=== PATIENT | female | born 1970 | race Caucasian/White ===

== ENCOUNTER 2021-02-14 09:00 | Outpatient (RCR) | payer BC, SELFPAY ==
[2021-02-07 08:57] VITALS: BP 152/78; PULSE 76; RESP 16; TEMP 36.6
[2021-02-07 11:36] LABS: Absolute Lymphocyte Count 2.87 X10^3/uL (0.83-4.51); Absolute Neutrophil Count 6.1 X10^3/uL (2.0-7.7); Basophil# 0.07 X10^3/uL; Basophil% 0.7 % (0-1); Hematocrit 41.9 % (37-47); Hemoglobin 13.3 g/dL (12.0-15.0); Lymphocyte # 2.87 X10^3/ul (0.83-4.51); Lymphocyte % 28.8 % (19-41); Mean Corp Hgb Conc 31.7 g/dL (32-36); Mean Corpuscular Hgb 28.4 pg (27.0-32.0); Mean Corpuscular Volume 89.3 fL (81-99); Mean Platelet Vol. 10.1 fl (6.2-12.0); Monocyte# 0.63 X10^3/uL; Monocyte% 6.3 % (0-10); NRBC Flagged by Analyzer 0 % (0-5); Neutrophil # 6.06 X10^3/uL (2.7-7.7); Neutrophil % 60.8 % (47-70); Platelet Count 377 K/mm3 (150-450); RBC Distribution Width CV 14.2 % (11.6-14.6); RBC Distribution Width SD 46.2 fl (35.1-43.9); Red Blood Count 4.69 M/mm3 (4.2-5.4)
[2021-02-07 11:37] LABS: Erythrocyte Sedimentation Rate 13 mm/hr (0-30)
[2021-02-07 12:04] LABS: Hemoglobin A1c 8.3 % (3.8-5.6)
[2021-02-07 12:08] LABS: ALB/GLOB Ratio 0.9 RATIO (0.9-2.4); AST(SGOT) 27 U/L (15-37); Alanine Aminotransfer ALT/SGPT 44 U/L (13-56); Albumin, Serum 3.5 g/dL (3.2-5.0); Alkaline Phosphatase 105 U/L (45-117); Anion Gap 7 (5-15); BUN 15 mg/dL (7-18); CRP 4.85 mg/L (0.0-3.0); Calcium,Total 8.9 mg/dL (8.5-10.1); Chloride 103 mmol/L (98-107); Creatinine, Serum 0.84 mg/dL (0.55-1.02); EST Glomerular Filtration Rate 77 mL/min (>60); Est Glom Filt Rate - Afr Amer 93 mL/min (>60); Globulin 4.1 g/dL (2.2-4.2); Glucose 167 mg/dL (74-106); Potassium 4.2 mmol/L (3.5-5.1); Prealbumin 23.7 mg/dL (20.0-40.0); Protein, Total 7.6 g/dL (6.4-8.2); Sodium Level 140 mmol/L (136-145)
--- NOTE | 2021-02-07 13:28 | PCM.WC.HP ---
History of Present Illness Date of Service: 02/07/21 Chief Complaint: Left foot injury 01/09/2021 History of Wound: The patient is a pleasant 50-year-old female who presents to the wound healing center today (02/07/2021) for an initial evaluation of a left foot wound that resulted from an injury which occurred on 01/09/2021. She has a past medical history significant for type 2 diabetes mellitus, hypertension, and COPD. She is a non-smoker. The patient was initially evaluated at [facility], and subsequently with Dr. Roc Chambers (D.P.M.) at [facility]. No records are currently available. She reports that on 01/09/2021, she suffered an injury to her left dorsal foot when an object fell from a tractor. Initially her left foot became bruised and very swollen. She was evaluated in the emergency department at [facility] and an x-ray was negative for fracture (per patient report). She was started on an antibiotic at that time. She followed up with Dr. Roc Chambers at [facility] and another x-ray was subsequently performed, and she was given doxycycline. She reports she had developed blisters at the time of her podiatric evaluation, which were drained by Dr. Chambers. She has been using Neosporin and gauze dressings to her left foot wound. She was given a walking boot by Dr. Chambers, which she has been using on her left foot. She has not had any wound cultures. She was referred here by Dr. Chambers. Since the time of her injury, she has had numbness in her left fourth and fifth toes. She is unable to move these toes. She has pain along the lateral aspect of the wound. She denies fever, chills, nausea, vomiting, or diarrhea. The patient has not had increased redness, swelling, or purulent/malodorous drainage from affected area. [facility], LATER [facility] Medical History (Updated 02/07/21 @ 13:58 by Mabel Hewitt NP, SISAL OPERATOR-C) COPD (chronic obstructive pulmonary disease) Diabetic ulcer of left foot associated with diabetes mellitus due to underlying condition, with muscle involvement without evidence of necrosis Essential hypertension Type 2 diabetes mellitus Varicose veins of bilateral lower extremities with other complications ROS Constitutional Constitutional: Denies chills, fever(s) or night sweats Eyes Eyes: Denies change in vision or double vision ENT HEENT: Denies lip swelling or tongue swelling Cardiovascular Cardiovascular: Reports edema and numbness in extremities; Denies chest pain or palpitations Respiratory/Chest Respiratory/Chest: Reports cough; Denies shortness of breath at rest, shortness of breath with exertion or wheezing Gastrointestinal Gastrointestinal: Denies diarrhea, nausea or vomiting Genitourinary Genitourinary: Denies dysuria or hematuria Musculoskeletal Musculoskeletal: Reports extremity pain, numbness and tingling; Denies abnormal gait or muscle weakness Integumentary Integumentary: Reports pruritus, rash and wounds Neurologic Neurologic: Reports numbness, sensory deficit and other Details: Unable to move fourth and fifth toes of left foot Endocrine Endocrinology: Denies cold intolerance, heat intolerance, polydipsia or polyuria Hematologic/Lymphatic Hematologic/Lymphatic: Denies easy bleeding or easy bruising Vital Signs Vital Signs Vital Signs: 02/07/21 08:57 Temperature 97.9 F Temperature Source Oral Pulse Rate 76 Respiratory Rate 16 Blood Pressure 152/78 H Blood Pressure Mean 102 Blood Pressure Position Sitting Blood Pressure Location Right Arm Physical Exam Const alert, no apparent distress and healthy appearing General Appearance: cooperative, comfortable and well kempt HEENT Head and Scalp: normocephalic and atraumatic Eyes EOMs intact bilaterally Neck supple and no JVD Resp normal respiratory effort, normal air movement and no use of accessory muscles Auscultation: clear to auscultation bilaterally; Negative for crackles, rales, rhonchi or wheezes Cardio regular rate and regular rhythm GI normal to inspection, nondistended, normoactive bowel sounds Extremity normal capillary refill Extremity Narrative: Varicosities of bilateral lower extremities noted General Extremity: edema left lower extremity (Foot) moderate; Negative for clubbing or cyanosis Peripheral Pulses: Yes dorsalis pedis pulses present bilateral 2+ Left Lower Extremity: foot and digits Positive for ROM (When asked to wiggle toes, movement is only observed in the left first and second digits) and other (Decreased sensation to touch in left fourth and fifth toes) Skin General Skin Exam: ecchymosis and erythema Rashes: rashes noted Left dorsal foot Narrative: Well-defined, erythematous, raised, dermatitic rash of the left dorsal foot at the site of patient's previous dressings. The site is pruritic per patient. Wounds: wounds noted No malodorous Wound Narrative: Wound of left dorsal foot with tendon exposed. Wound is covered in large amounts of eschar, which makes visualization of wound bed and determining extent of wound difficult at this time. The wound extends to muscle/fascia. Probing to bone was not noted on exam, though this cannot be fully excluded based on the amount of eschar and devitalized tissue present in the wound bed. There is circumferential undermining of the wound. Moderate amount of sanguinous drainage noted. There is no purulent/malodorous drainage from the wound. There is mild periwound erythema. There is bruising of the left foot. The left foot is tender to palpation, primarily along the lateral aspect of the left foot. Neuro oriented x3 Psych mental status grossly normal, cooperative and affect normal Debridement Note Debridement Note Post-Debridement Measurements and Additional Note: Post-Debridement Measurements/Treatment - Nurse 1 - General Ulcer Assessment Start: 02/07/21 08:57 Freq: Status: Active Protocol: [email or web address] Activity Type Activity Date Activity User E-Sign Co-Sign Detail Recorded Client Recorded Date Recorded By Document 02/07/21 08:57 ML [id number] 02/07/21 09:12 ML 02/07/21 08:57 - Today's Visit Information Type of service Initial Visit Arrival Mode Ambulatory Transfer Assistance None Patient Identification Verified (Name & Yes ) Patient Requires Transmission-Based No Precautions Safety Precautions NA Vital Signs Temperature (97.8 F-99.1 F) 97.9 F Temperature Source Oral Pulse Rate (60-100) 76 Pulse Location Monitor Respiratory Rate (12-18) 16 Respiratory rate source Ausculation Blood Pressure (90/60-120/80) 152/78 H Blood Pressure Mean 102 Position Sitting Blood Pressure Location Right Arm History Since Last Visit- (Skip if this is Patient's initial visit) Have you changed medications since your No last visit? Any new allergies or adverse reactions No Had a fall/change in ADL's that may No increase risk of falls Signs or symptoms of abuse and/or No neglect since last visit Have you been in the hospital since your No last visit? Has dressing in place as prescribed No Has compression in place as prescribed N/A Has offloadiing in place as prescribed N/A Experienced any changes in pain level or No management Left Footwear Removable Cast Walker/Walking Boot Right Footwear Regular Shoe Pain Scale: 0-10 Numeric Is Patient Pain Free? Yes - Nurse 1 - General Ulcer Measurement Start: 02/07/21 08:57 Freq: Status: Active Protocol: Activity Type Activity Date Activity User E-Sign Co-Sign Detail Recorded Client Recorded Date Recorded By Document 02/07/21 08:57 ML [id number] 02/07/21 09:12 ML 02/07/21 08:57 Wound Center Nurse 1 #1 left foot -Current Size (cm) - Length 2.2 -Current Size (cm) - Width 2.5 -Current Size (cm) - Depth 0.1 -Total Square Cm 5.50 -Exudate Amt Small -Exudate Type Serosanguineous -Wound Margin Distinct, Outline Attached -Granulation Amt None Present (0 %) -Slough/Fibrin Yes -Necrosis Amt Medium (34-66%) -Necrotic Tissue Type Eschar -Texture (Oly-wound Skin Appearance) Assessed -Moisture (Oly-wound Skin Appearance) Assessed -Color (Oly-wound Skin Appearance) Assessed, Erythema -Temperature (Oly-wound Skin No Abnormality Appearance) (Pt Warm) -Tenderness on Palpation (Oly-wound Yes Skin Appearance) -Ulcer Cleansing Wound Cleanser -Foul Odor after Cleansing No -Anesthetic Used 4% Lidocaine Solution WC - Nurse 2 - General Ulcer CM Notes Start: 02/07/21 08:57 Freq: Status: Active Protocol: Activity Type Activity Date Activity User E-Sign Co-Sign Detail Recorded Client Recorded Date Recorded By Document 02/07/21 12:39 PL [id number] 02/07/21 12:41 PL 02/07/21 12:39 Wound Center Nurse 2 -Time 09:52 -Correct Patient Yes -Correct Side, Site, Position Yes -Correct Procedure Yes -Procedure Performed Yes -Type of Procedure Debridement -Clinical Debridement Subcutaneous -Tissue Removed Subcutaneous -Post Debridement (cm) - Length 3 -Post Debridement (cm) - Width 2.2 -Post Debridement (cm) - Depth 1.4 -Total Square (Post) (cm) 6.6 -Area of Debridement (cm) - Length 3 -Area of Debridement (cm) - Width 2.2 -Total Square (Area) (cm) 6.6 -Tunneling No -Undermining/Tunneling No -Circular Undermining No -Wound/Ulcer Outcome Not Healed -Ulcer Cleansing Rinsed/ Irrigated with Saline -Foul Odor after Cleansing No -Bioengineered Tissue No -Debridement - Subq, 1st 20sq cm Yes Pain Scale: 0-10 Numeric Is Patient Pain Free? Yes WC - Nurse 3 - General Ulcer D/C NN Start: 02/07/21 08:57 Freq: Status: Active Protocol: Activity Type Activity Date Activity User E-Sign Co-Sign Detail Recorded Client Recorded Date Recorded By Document 02/07/21 10:31 ML [id number] 02/07/21 10:32 ML 02/07/21 10:31 Wound Care Nurse 3 #1 left foot -Ulcer Cleansing Rinsed/ Irrigated with Saline -Foul Odor after Cleansing No -Primary Dressing Applied Nugauze, Iodoform -Other Dressing hydrogel -Primary Dressing Covered/Secured with Dry Gauze & Roll Gauze -Nugauze, Iodoform 07/29 1 Wound debrided: Left dorsal foot DFU Laterality: Left Wound Grade/Stage: Balbuena 3 Type of Debridement: Excisional debridement Anesthesia Used: 5% Lidocaine Gel and Cetacaine Depth: Down to and including healthy tissue, in the subcutaneous layer and to muscle Percentage of wound debrided: 100 Instrument Used: 5mm curette, #15 blade and Forceps Tissue Removed: Eschar, slough, devitalized tissue Severity: Necrosis of Muscle Amount of bleeding with debridement: Moderate Bleeding Controlled with: Pressure Patient tolerated procedure: Patient tolerated procedure well Lab / Micro Data Result Diagrams: 02/07/21 10:52 02/07/21 10:52 Labs: Laboratory Results - last 24 hr 02/07/21 10:52: Sodium 140, Potassium 4.2, Chloride 103, Carbon Dioxide 30.0, Anion Gap 7, BUN 15, Creatinine 0.84, Est GFR (MDRD) Af Amer 93, Est GFR (MDRD) Non-Af 77, BUN/Creatinine Ratio 18.0, Glucose 167 H, Calcium 8.9, Total Bilirubin 0.50, AST 27, ALT 44, Alkaline Phosphatase 105, C-React Prot Ext Range 4.85 H, Total Protein 7.6, Albumin 3.5, Globulin 4.1, Albumin/Globulin Ratio 0.9, Prealbumin 23.7 02/07/21 10:52: Hemoglobin A1c 8.3 H 02/07/21 10:52: WBC 10.0, RBC 4.69, Hgb 13.3, Hct 41.9, MCV 89.3, MCH 28.4, MCHC 31.7 L, RDW Std Deviation 46.2 H, RDW Coeff of Koffi 14.2, Plt Count 377, MPV 10.1, Immature Gran % (Auto) 0.400, Neut % (Auto) 60.8, Lymph % (Auto) 28.8, [place] % (Auto) 6.3, Eos % (Auto) 3.0, Baso % (Auto) 0.7, Absolute Neuts (auto) 6.1, Absolute Lymphs (auto) 2.87, Nucleated RBC % 0, ESR 13 Charges/Coding Visit Charges Office Visits / Consults: [id number] OV L4 New Procedures Integumentary [id number]: [id number] Tonja musc/fascia 20 sq cm/< Assessment/Plan Assessment/Plan (1) Diabetic ulcer of left foot associated with diabetes mellitus due to underlying condition, with muscle involvement without evidence of necrosis: CODE(S): E08.621 - Diabetes mellitus due to underlying condition with foot ulcer; L97.525 - Non-pressure chronic ulcer of other part of left foot with muscle involvement without evidence of necrosis (2) Type 2 diabetes mellitus: CODE(S): E11.9 - Type 2 diabetes mellitus without complications QUALIFIERS: Diabetes mellitus group home insulin use: without group home use Diabetes mellitus complication status: with skin complications Diabetes mellitus complication detail: with foot ulcer Qualified Code(s): E11.621 - Type 2 diabetes mellitus with foot ulcer; L97.509 - Non-pressure chronic ulcer of other part of unspecified foot with unspecified severity (3) Varicose veins of bilateral lower extremities with other complications: CODE(S): I83.893 - Varicose veins of bilateral lower extremities with other complications (4) Essential hypertension: CODE(S): I10 - Essential (primary) hypertension (5) COPD (chronic obstructive pulmonary disease): CODE(S): J44.9 - Chronic obstructive pulmonary disease, unspecified QUALIFIERS: COPD type: unspecified COPD Qualified Code(s): J44.9 - Chronic obstructive pulmonary disease, unspecified PLAN: Debridement performed today in clinic as annotated above. Gauze packing applied. At home wound-care instructions: Santyl ointment ordered. Perform Santyl dressing changes daily, and cover/pack with gauze. Change dressing once daily or more frequently as needed due to contamination. Wash wounds daily with antibacterial soap and water, rinse and dry thoroughly before each dressing change. Off-loading: The patient was instructed to avoid pressure and friction on the affected areas. Avoid prolonged standing and/or dangling of legs. When seated, feet should be elevated at chest level. Diet: Patient encouraged to increase protein intake while taking caution to avoid high carbohydrate and/or sugar intake. Labs/cultures/imaging: Cultures ordered and collected today. The patient was instructed to continue doxycycline. If antibiotic changes warranted, we will contact the patient with new orders. Routine baseline lab work ordered (CBCD, CMP, ESR, CRP, prealbumin, A1c). Venous and arterial studies ordered. MRI with and without contrast of left foot ordered to evaluate for the presence of osteomyelitis. Follow-up: Return to clinic in 1 week for re-evaluation. Return sooner or report to the emergency room should symptoms worsen, or new symptoms arise. Given the depth and undermining of the patient's wound, as well as involvement of tendon, the patient will be referred to podiatry. I called and spoke with Dr. Roc Chambers's clinical staff regarding the patient's wound condition and the need for surgical debridement. Dr. Roc Chambers will be leaving [facility] in February 2021. The patient will be referred to Dr. Aguilar for surgical podiatric consult.
[2021-02-14 09:04] VITALS: TEMP 35.7
--- NOTE | 2021-02-14 14:29 | PN.PCM_ITS ---
History of Present Illness Date of Service: 02/14/21 Chief Complaint: Left foot injury 01/09/2021 History of Wound: The patient is a pleasant 50-year-old female who presents to the wound healing center today (02/07/2021) for an initial evaluation of a left foot wound that resulted from an injury which occurred on 01/09/2021. She has a past medical history significant for type 2 diabetes mellitus, hypertension, and COPD. She is a non-smoker. The patient was initially evaluated at [facility], and subsequently with Dr. Roc Chambers (D.P.M.) at [facility]. No records are currently available. She reports that on 01/09/2021, she suffered a traumatic injury to her left dorsal foot when seated on the fender of the tractor and her foot was forcefully crushed by part of the tractor. Initially her left foot became bruised and very swollen. She was evaluated in the emergency department at [facility] and an x-ray was negative for fracture or dislocation. She was started on an antibiotic at that time. She followed up with Dr. Roc Chambers at [facility] and another x-ray was subsequently performed, and she was given doxycycline. She reports she had developed blisters at the time of her podiatric evaluation, which were drained by Dr. Chambers. She has been using Neosporin and gauze dressings to her left foot wound. She was given a walking boot by Dr. Chambers, which she has been using on her left foot. She has not had any wound cultures. She was referred here by Dr. Chambers. Since the time of her injury, she has had numbness in her left fourth and fifth toes. She is unable to move these toes. She has pain along the lateral aspect of the wound. She denies fever, chills, nausea, vomiting, or diarrhea. The patient has not had increased redness, swelling, or purulent/malodorous drainage from affected area. Progress of Wound: Patient has been compliant with the use of Santyl. Her wound has improved in size and appearance in the past week. She has regained feeling and movement in all the toes of her left foot. Her left foot swelling and pain have improved. The patient denies fever, chills, general malaise, or poor appetite. The patient has not had increased redness, swelling, or p urulent/malodorous drainage from affected area. Objective Data Objective Data Vital Signs: Vital Signs Temp Pulse Resp BP 96.2 F L 76 16 152/78 H 02/14/21 09:04 02/07/21 08:57 02/07/21 08:57 02/07/21 08:57 Lab / Micro Data Result Diagrams: 02/07/21 10:52 02/07/21 10:52 Micro: Microbiology 02/07/21 10:00 Wound Abcess - Left Foot Gram Stain - Final 02/07/21 10:00 Wound Abcess - Left Foot Wound Culture - Final No growth aerobically. 02/07/21 10:00 Wound Abcess - Left Foot Anaerobic Culture - Final No growth in 5 days. Charges/Coding Procedures Integumentary [id number]: [id number] Tonja musc/fascia 20 sq cm/< Physical Exam Const alert, no apparent distress and healthy appearing General Appearance: cooperative, comfortable and well kempt HEENT Head and Scalp: normocephalic and atraumatic Neck supple Resp normal respiratory effort Extremity normal capillary refill Extremity Narrative: Varicosities of bilateral lower extremities noted General Extremity: edema left lower extremity (Foot) mild; Negative for clubbing or cyanosis Peripheral Pulses: Yes dorsalis pedis pulses present left 2+ Left Lower Extremity: foot and digits Positive for ROM (Able to move all toes of left foot) and other (No decreased sensation to touch in toes of left foot) Skin Rashes: no rashes Wounds: wounds noted No malodorous Wound Narrative: Wound of left dorsal foot with questionable tendon exposed. Wound is covered in moderate to large amounts of eschar, which makes visualization of wound bed and determining extent of wound difficult at this time. The wound extends to muscle/fascia. Probing to bone was not noted on exam, though this cannot be fully excluded based on the amount of eschar and devitalized tissue present in the wound bed. Undermining of the wound and depth of wound have improved in the past week. Moderate amount of sanguinous drainage noted. There is no purulent/malodorous drainage from the wound. There is mild periwound erythema. The left foot is tender to palpation, primarily along the lateral aspect of the left foot. Neuro oriented x3 Psych mental status grossly normal, cooperative and affect normal Debridement Note Debridement Note Post-Debridement Measurements and Additional Note: Post-Debridement Measurements/Treatment - Nurse 1 - General Ulcer Assessment Start: 02/07/21 08:57 Freq: Status: Active Protocol: JOSSELYN Activity Type Activity Date Activity User E-Sign Co-Sign Detail Recorded Client Recorded Date Recorded By Document 02/07/21 08:57 ML [id number] 02/07/21 09:12 ML Document 02/14/21 09:04 GARRETT [id number] 02/14/21 09:10 GARRETT 02/07/21 02/14/21 08:57 09:04 WC - Today's Visit Information Type of service Initial Visit Follow-up Visit (Physician/SENIOR BENEFITS MANAGER ) Arrival Mode Ambulatory Ambulatory Transfer Assistance None Patient Identification Verified (Name & Yes Yes ) Patient Requires Transmission-Based No No Precautions Safety Precautions NA Finger Stick Blood Sugar(mg/dl) (if 148 indicated): Blood Sugar Stated by Patient Vital Signs Temperature (97.8 F-99.1 F) 97.9 F 96.2 F L Temperature Source Oral Temporal Pulse Rate (60-100) 76 Pulse Location Monitor Respiratory Rate (12-18) 16 Respiratory rate source Ausculation Blood Pressure (90/60-120/80) 152/78 H Blood Pressure Mean (mm Hg) 102 Position Sitting Blood Pressure Location Right Arm History Since Last Visit- (Skip if this is Patient's initial visit) Have you changed medications since your No No last visit? Any new allergies or adverse reactions No No Had a fall/change in ADL's that may No No increase risk of falls Signs or symptoms of abuse and/or No No neglect since last visit Have you been in the hospital since your No No last visit? Has dressing in place as prescribed No Yes Has compression in place as prescribed N/A Yes Has offloadiing in place as prescribed N/A Yes Experienced any changes in pain level or No No management Left Footwear Removable Cast Removable Cast Walker/Walking Walker/Walking Boot Boot Right Footwear Regular Shoe Regular Shoe Pain Scale: 0-10 Numeric Is Patient Pain Free? Yes Yes CHUCKIE - Nurse 1 - General Ulcer Measurement Start: 02/07/21 08:57 Freq: Status: Active Protocol: Activity Type Activity Date Activity User E-Sign Co-Sign Detail Recorded Client Recorded Date Recorded By Document 02/07/21 08:57 ML [id number] 02/07/21 09:12 ML Document 02/14/21 09:04 [id number] 02/14/21 09:10 02/07/21 02/14/21 08:57 09:04 Wound Center Nurse 1 #1 left foot -Combined with other wound No -Current Size (cm) - Length 2.2 2.3 -Current Size (cm) - Width 2.5 1.6 -Current Size (cm) - Depth 0.1 0.4 -Total Square Cm 5.50 3.68 -Photo Taken No -Epithelialization Small 1-33% -Tunneling No -Undermining/Tunneling No -Circular Undermining No -Exudate Amt Small Medium -Exudate Type Serosanguineous Serosanguineous -Wound Margin Distinct, Flat & Intact Outline Attached -Granulation Amt None Present (0 Small (1-33%) %) -Granulation Quality [place] -Slough/Fibrin Yes Yes -Necrosis Amt Medium (34-66%) Large (67-100%) -Necrotic Tissue Type Eschar Adherent Slough -Structure Exposed N/A -Texture (Oly-wound Skin Appearance) Assessed Assessed -Moisture (Oly-wound Skin Appearance) Assessed Assessed,Dry/ Scaly -Color (Oly-wound Skin Appearance) Assessed, Assessed Erythema -Temperature (Oly-wound Skin No Abnormality No Abnormality Appearance) (Pt Warm) (Pt Warm) -Tenderness on Palpation (Oly-wound Yes No Skin Appearance) -Ulcer Cleansing Wound Cleanser Rinsed/ Irrigated with Saline -Foul Odor after Cleansing No No -Anesthetic Used 4% Lidocaine 5% Lidocaine Solution Gel Lower Limb Edema Present Yes Left Calf (cm) 39.3 Left Ankle (cm) 21.3 WC - Nurse 2 - General Ulcer CM Notes Start: 02/07/21 08:57 Freq: Status: Active Protocol: Activity Type Activity Date Activity User E-Sign Co-Sign Detail Recorded Client Recorded Date Recorded By Document 02/07/21 12:39 PL [id number] 02/07/21 12:41 PL Document 02/14/21 13:30 PL [id number] 02/14/21 13:31 PL 02/07/21 02/14/21 12:39 13:30 Wound Center Nurse 2 #1 left foot -Time 09:52 09:57 -Correct Patient Yes Yes -Correct Side, Site, Position Yes Yes -Correct Procedure Yes Yes -Procedure Performed Yes Yes -Type of Procedure Debridement Debridement -Clinical Debridement Subcutaneous Subcutaneous -Tissue Removed Subcutaneous Subcutaneous -Post Debridement (cm) - Length 3 2.5 -Post Debridement (cm) - Width 2.2 2.0 -Post Debridement (cm) - Depth 1.4 0.8 -Total Square (Post) (cm) 6.6 5.00 -Area of Debridement (cm) - Length 3 2.5 -Area of Debridement (cm) - Width 2.2 2.0 -Total Square (Area) (cm) 6.6 5.00 -Tunneling No No -Undermining/Tunneling No Yes -Undermining/Tunneling Starts (O'clock 7 ) -Undermining/Tunneling Ends (O'clock) 11 -Maximum Distance (cm) 0.5 -Circular Undermining No No -Wound/Ulcer Outcome Not Healed Not Healed -Ulcer Cleansing Rinsed/ Rinsed/ Irrigated with Irrigated with Saline Saline -Foul Odor after Cleansing No No -Bioengineered Tissue No No -Bleeding Controlled with Pressure -Treatment Response Procedure Tolerated Well -Debridement - Subq, 1st 20sq cm Yes Yes Pain Scale: 0-10 Numeric Is Patient Pain Free? Yes Yes - Nurse 3 - General Ulcer D/C NN Start: 02/07/21 08:57 Freq: Status: Active Protocol: Activity Type Activity Date Activity User E-Sign Co-Sign Detail Recorded Client Recorded Date Recorded By Document 02/07/21 10:31 ML [id number] 02/07/21 10:32 Document 02/14/21 10:24 [id number] 02/14/21 10:25 02/07/21 02/14/21 10:31 10:24 Wound Care Nurse 3 #1 left foot -Ulcer Cleansing Rinsed/ Rinsed/ Irrigated with Irrigated with Saline Saline -Foul Odor after Cleansing No No -Primary Dressing Applied Nugauze, C Hydrogel ($) Iodoform -Other Dressing hydrogel -Primary Dressing Covered/Secured with Dry Gauze & Dry Gauze, Roll Gauze Secured with Tape -Nugauze, Iodoform 1/4 1 Left -Tubular Bandage Double Layer -Size of Tubigrip Used Size D -Size D ($) 2 Pain Scale: 0-10 Numeric Is Patient Pain Free? Yes WC - Visit Discharge Discharge Condition Stable Ambulatory Status Ambulatory Transportation Private Auto Medication Reconcilliation completed & Yes provided to patient/care provider Clinical Summary of Care Provided Yes Wound debrided: Left dorsal foot Laterality: Left Wound Grade/Stage: Balbuena 3 Type of Debridement: Excisional debridement Anesthesia Used: 5% Lidocaine Gel Depth: Down to and including healthy tissue, in the subcutaneous layer and to muscle Percentage of wound debrided: 100 Instrument Used: 7mm curette Tissue Removed: Slough and devitalized tissue Severity: Fat Layer Exposed Amount of bleeding with debridement: Moderate Bleeding Controlled with: Pressure Patient tolerated procedure: Patient tolerated procedure well Assessment/Plan Assessment/Plan (1) Diabetic ulcer of left foot associated with diabetes mellitus due to underlying condition, with muscle involvement without evidence of necrosis: CODE(S): E08.621 - Diabetes mellitus due to underlying condition with foot ulcer; L97.525 - Non-pressure chronic ulcer of other part of left foot with muscle involvement without evidence of necrosis (2) Crushing injury of left foot, sequela: CODE(S): S97.82XS - Crushing injury of left foot, sequela (3) Type 2 diabetes mellitus: CODE(S): E11.9 - Type 2 diabetes mellitus without complications QUALIFIERS: Diabetes mellitus senior care insulin use: without termite control servicer use Diabetes mellitus complication status: with skin complications Diabetes mellitus complication detail: with foot ulcer Qualified Code(s): E11.621 - Type 2 diabetes mellitus with foot ulcer; L97.509 - Non-pressure chronic ulcer of other part of unspecified foot with unspecified severity (4) Varicose veins of bilateral lower extremities with other complications: CODE(S): I83.893 - Varicose veins of bilateral lower extremities with othe r complications (5) Essential hypertension: CODE(S): I10 - Essential (primary) hypertension (6) COPD (chronic obstructive pulmonary disease): CODE(S): J44.9 - Chronic obstructive pulmonary disease, unspecified QUALIFIERS: COPD type: unspecified COPD Qualified Code(s): J44.9 - Chronic obstructive pulmonary disease, unspecified PLAN: Debridement performed today in clinic as annotated above. Aquacel Ag applied. At home wound-care instructions: Perform Santyl dressing changes daily, and cover/pack with gauze. Change dressing once daily or more frequently as needed due to contamination. Wash wounds daily with antibacterial soap and water, rinse and dry thoroughly before each dressing change. Compression: Double Tubigrip's applied to the left lower extremity. Wear these daily. Off-loading: The patient was instructed to avoid pressure and friction on the affected areas. Avoid prolonged standing and/or dangling of legs. When seated, feet should be elevated at chest level. Continue use of walking boot given by Ortho. Diet: Patient encouraged to increase protein intake while taking caution to avoid high carbohydrate and/or sugar intake. The patient is a non-smoker. Labs/cultures/imaging: Cultures were negative. The patient has completed a course of doxycycline. Routine baseline lab work reviewed (CBCD, CMP, ESR, CRP, prealbumin, A1c), significant for the following: CBCD: Unremarkable CMP: Glucose 167 (H) Hemoglobin A1c: 8.3% (H) CRP: 4.85 (H) ESR: Normal Prealbumin: Normal *The patient's PCP office was contacted with results of hemoglobin A1c. Patient has been encouraged to follow-up with PCP at earliest convenience to discuss further management of diabetes. The importance of optimizing glucose management was discussed with the patient. Venous and arterial studies ordered: The patient does not wish to pursue vascular studies at this time. This will be readdressed if we experience stalling of wound healing. MRI with and without contrast of left foot ordered to evaluate for the presence of osteomyelitis; this has been scheduled for next week. Follow-up: Patient will be referred to podiatry for consultation next week. Given patient's significant improvement in the past week, surgery may not be nec essary. If surgery is felt necessary by podiatry, that will be pursued. If unable to see podiatry within the next week, contact the wound healing center to be scheduled with a [facility] provider for reevaluation. Return sooner or report to the emergency room should symptoms worsen, or new symptoms arise. Note: Dapt speech recognition house cleaner supervisor software was used to create portions of this document. Sound-alike and misspelled words, as well as other house cleaner supervisor errors may be contained in the documentation.
== END 2021-02-22 23:59 ==
LOC: WC 09:00
PROVIDERS: PCP Internal Medicine; Referring Provider Nurse Practitioner Family; Visit Provider Nurse Practitioner Family
DX: E11.621 Type 2 diabetes mellitus with foot ulcer (principal); L97.525 Non-pressure chronic ulcer of other part of left foot with muscle involvement without evidence of necrosis; S97.82XA Crushing injury of left foot, initial encounter; W23.0XXA Caught, crushed, jammed, or pinched between moving objects, initial encounter; I10 Essential (primary) hypertension; J44.9 Chronic obstructive pulmonary disease, unspecified; I83.893 Varicose veins of bilateral lower extremities with other complications
CPT/HCPCS: 11042; 36415; 80053; 83036; 84134; 85025; 85652; 86140; 87070; 87075; 87205; 99213; G0463

== ENCOUNTER 2021-03-14 11:00 | Outpatient (RCR) | payer BC, SELFPAY ==
[2021-02-23 00:38] VITALS: BP 152/78; PULSE 76; RESP 16; TEMP 35.7
[2021-02-28 09:31] VITALS: BP 151/72; PULSE 58; RESP 20; TEMP 36.7
--- NOTE | 2021-02-28 13:54 | PCM.WC.PN ---
History of Present Illness Date of Service: 02/28/21 Chief Complaint: Left foot injury 01/09/2021 History of Wound: The patient is a pleasant 50-year-old female who presents to the wound healing center today (02/07/2021) for an initial evaluation of a left foot wound that resulted from an injury which occurred on 01/09/2021. She has a past medical history significant for type 2 diabetes mellitus, hypertension, and COPD. She is a non-smoker. The patient was initially evaluated at [facility], and subsequently with Dr. Roc Chambers (D.P.M.) at [facility]. No records are currently available. She reports that on 01/09/2021, she suffered a traumatic injury to her left dorsal foot when seated on the fender of the tractor and her foot was forcefully crushed by part of the tractor. Initially her left foot became bruised and very swollen. She was evaluated in the emergency department at [facility] and an x-ray was negative for fracture or dislocation. She was started on an antibiotic at that time. She followed up with Dr. Roc Chambers at [facility] and another x-ray was subsequently performed, and she was given doxycycline. She reports she had developed blisters at the time of her podiatric evaluation, which were drained by Dr. Chambers. She has been using Neosporin and gauze dressings to her left foot wound. She was given a walking boot by Dr. Chambers, which she has been using on her left foot. She has not had any wound cultures. She was referred here by Dr. Chambers. Since the time of her injury, she has had numbness in her left fourth and fifth toes. She is unable to move these toes. She has pain along the lateral aspect of the wound. She denies fever, chills, nausea, vomiting, or diarrhea. The patient has not had increased redness, swelling, or purulent/malodorous drainage from affected area. Progress of Wound: Patient has been compliant with the use of Santyl. Her wound has improved in size and appearance in the past week. She has regained feeling and movement in all the toes of her left foot. Her left foot swelling and pain have significantly improved. She no longer feels the need to use her walking boot from Ortho. She has been wearing regular, nonrestrictive shoes. She also feels she is able to return to work without restrictions at this time. (That she was previously on restrictions from Ortho to sit and elevate the foot for 10 minutes every hour. She no longer feels these restrictions are necessary, as she is able to take breaks frequently throughout her shifts and elevate her leg.) She did not have a podiatry consult. She did not have her MRI completed as ordered, and states she does not wish to pursue this at this time. She was evaluated by her primary care provider and was started on Januvia for her diabetes. The patient denies fever, chills, general malaise, or poor appetite. The patient has not had increased redness, swelling, or purulent/malodorous drainage from affected area. Objective Data Objective Data Vital Signs: Vital Signs Temp Pulse Resp BP 98.1 F 58 L 20 H 151/72 H 02/28/21 09:31 02/28/21 09:31 02/28/21 09:31 02/28/21 09:31 Charges/Coding Procedures Integumentary [id number]: [id number] Tonja musc/fascia 20 sq cm/< Physical Exam Const alert, no apparent distress and healthy appearing General Appearance: cooperative, comfortable and well kempt HEENT Head and Scalp: normocephalic and atraumatic Neck supple Resp normal respiratory effort Extremity normal capillary refill Extremity Narrative: Varicosities of bilateral lower extremities noted General Extremity: edema left lower extremity (Foot) mild; Negative for clubbing or cyanosis Peripheral Pulses: Yes dorsalis pedis pulses present left 2+ Left Lower Extremity: foot and digits Positive for ROM (Able to move all toes of left foot) Skin Rashes: no rashes Wounds: wounds noted No malodorous Wound Narrative: Wound of left dorsal foot with muscle/fascia exposed. Tendon no longer visible. Moderate amount of slough and devitalized tissue present. Undermining has resolved. No probing to bone. No tunneling. Moderate amount of sanguinous drainage noted. There is no purulent/malodorous drainage from the wound. There is mild periwound edema. Lateral left foot tenderness is significantly improved. 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 ) Arrival Mode Ambulatory Transfer Assistance None Patient Identification Verified (Name & Yes ) Patient Requires Transmission-Based No Precautions Finger Stick Blood Sugar(mg/dl) (if not checked indicated): Blood Sugar Stated by Patient Vital Signs Temperature (97.8 F-99.1 F) 98.1 F Temperature Source Temporal Pulse Rate (60-100) 58 L Pulse Location Monitor Respiratory Rate (12-18) 20 H Respiratory rate source Observation Blood Pressure (90/60-120/80) 151/72 H Blood Pressure Mean (mm Hg) 98 Source Monitor History Since Last Visit- (Skip if this is Patient's initial visit) Have you changed medications since your No last visit? Any new allergies or adverse reactions No Signs or symptoms of abuse and/or No neglect since last visit Have you been in the hospital since your No last visit? Has dressing in place as prescribed Yes Has compression in place as prescribed N/A Has offloadiing in place as prescribed No Experienced any changes in pain level or Yes management Left Footwear Regular Shoe Right Footwear Regular Shoe Pain Scale: 0-10 Numeric Is Patient Pain Free? Yes - Nurse 1 - General Ulcer Measurement Start: 02/28/21 09:31 Freq: Status: Active Protocol: Activity Type Activity Date Activity User E-Sign Co-Sign Detail Recorded Client Recorded Date Recorded By Document 02/28/21 09:31 DL [id number] 02/28/21 09:36 DL 02/28/21 09:31 Wound Center Nurse 1 #1 left foot -Current Size (cm) - Length 2 -Current Size (cm) - Width 1.2 -Current Size (cm) - Depth 0.3 -Total Square Cm 2.4 -Photo Taken No -Exudate Amt Medium -Exudate Type Serosanguineous -Wound Margin Distinct, Outline Attached -Granulation Amt Medium (34-66%) -Granulation Quality Red -Necrosis Amt Medium (34-66%) -Necrotic Tissue Type Adherent Slough -Structure Exposed N/A -Texture (Oly-wound Skin Appearance) Localized Edema ,Scarring -Moisture (Oly-wound Skin Appearance) No Abnormality -Color (Oly-wound Skin Appearance) Rubor -Temperature (Oly-wound Skin No Abnormality Appearance) (Pt Warm) -Tenderness on Palpation (Oly-wound No Skin Appearance) -Ulcer Cleansing Rinsed/ Irrigated with Saline -Foul Odor after Cleansing No -Anesthetic Used 5% Lidocaine Gel Left Calf (cm) 39.4 Left Ankle (cm) 21 WC - Nurse 2 - General Ulcer CM Notes Start: 02/28/21 09:31 Freq: Status: Active Protocol: Activity Type Activity Date Activity User E-Sign Co-Sign Detail Recorded Client Recorded Date Recorded By Document 02/28/21 13:48 PL [id number] 02/28/21 13:51 PL 02/28/21 13:48 Wound Center Nurse 2 #1 left foot -Time 10:01 -Correct Patient Yes -Correct Side, Site, Position Yes -Correct Procedure Yes -Procedure Performed Yes -Type of Procedure Debridement -Clinical Debridement Muscle / Fascia -Tissue Removed Epidermis, Dermis, Subcutaneous, Muscle -Post Debridement (cm) - Length 2.0 -Post Debridement (cm) - Width 1.9 -Post Debridement (cm) - Depth 0.7 -Total Square (Post) (cm) 3.80 -Area of Debridement (cm) - Length 2.0 -Area of Debridement (cm) - Width 1.9 -Total Square (Area) (cm) 3.80 -Tunneling No -Undermining/Tunneling No -Circular Undermining No -Wound/Ulcer Outcome Not Healed -Ulcer Cleansing Rinsed/ Irrigated with Saline -Foul Odor after Cleansing No -Bioengineered Tissue No -Debridement - Muscle / Fascia, 1st Yes 20sq cm Pain Scale: 0-10 Numeric Is Patient Pain Free? Yes - Nurse 3 - General Ulcer D/C NN Start: 02/28/21 09:31 Freq: Status: Active Protocol: Activity Type Activity Date Activity User E-Sign Co-Sign Detail Recorded Client Recorded Date Recorded By Document 02/28/21 13:48 PL [id number] 02/28/21 13:51 PL 02/28/21 13:48 Is Patient Pain Free? Yes Wound Care Nurse 3 #1 left foot -Ulcer Cleansing Rinsed/ Irrigated with Saline -Foul Odor after Cleansing No -Other Dressing Hydrogel -Primary Dressing Covered/Secured with Dry Gauze & Roll Gauze, Secured with Tape Left -Tubular Bandage Double Layer -Size of Tubigrip Used Size E -Size E ($) 2 WC - Visit Discharge Discharge Condition Stable Ambulatory Status Ambulatory Transportation Private Auto Clinical Summary of Care Provided Yes Wound debrided: Left dorsal foot Laterality: Left Wound Grade/Stage: Balbuena 3 Type of Debridement: Excisional debridement Anesthesia Used: 5% Lidocaine Gel Depth: in the subcutaneous layer Percentage of wound debrided: 100 Assessment/Plan Assessment/Plan (1) Diabetic ulcer of left foot associated with diabetes mellitus due to underlying condition, with muscle involvement without evidence of necrosis: CODE(S): E08.621 - Diabetes mellitus due to underlying condition with foot ulcer; L97.525 - Non-pressure chronic ulcer of other part of left foot with muscle involvement without evidence of necrosis (2) Crushing injury of left foot, sequela: CODE(S): S97.82XS - Crushing injury of left foot, sequela (3) Type 2 diabetes mellitus: CODE(S): E11.9 - Type 2 diabetes mellitus without complications QUALIFIERS: Diabetes mellitus tank terminal gauger insulin use: without fci use Diabetes mellitus complication status: with skin complications Diabetes mellitus complication detail: with foot ulcer Qualified Code(s): E11.621 - Type 2 diabetes mellitus with foot ulcer; L97.509 - Non-pressure chronic ulcer of other part of unspecified foot with unspecified severity (4) Varicose veins of bilateral lower extremities with other complications: CODE(S): I83.893 - Varicose veins of bilateral lower extremities with other complications (5) Essential hypertension: CODE(S): I10 - Essential (primary) hypertension (6) COPD (chronic obstructive pulmonary disease): CODE(S): J44.9 - Chronic obstructive pulmonary disease, unspecified QUALIFIERS: COPD type: unspecified COPD Qualified Code(s): J44.9 - Chronic obstructive pulmonary disease, unspecified PLAN: Debridement performed today in clinic as annotated above. At home wound-care instructions: Perform Santyl dressing changes daily, and cover/pack with gauze. Change dressing once daily or more frequently as needed due to contamination. Wash wounds daily with antibacterial soap and water, rinse and dry thoroughly before each dressing change. Compression: Double Tubigrip's applied to the left lower extremity. Wear these daily. Off-loading: The patient was instructed to avoid pressure and friction on the affected areas. Avoid prolonged standing and/or dangling of legs. When seated, feet should be elevated at chest level. May continue to wear normal, nonrestrictive shoes for the next week unless wound worsening is noted. Diet: Patient encouraged to increase protein intake while taking caution to avoid high carbohydrate and/or sugar intake. The patient is a non-smoker. Labs/cultures/imaging: Cultures were negative. The patient has completed a course of doxycycline. Routine baseline lab work (CBCD, CMP, ESR, CRP, prealbumin, A1c), significant for the following: CBCD: Unremarkable CMP: Glucose 167 (H) Hemoglobin A1c: 8.3% (H) CRP: 4.85 (H) ESR: Normal Prealbumin: Normal The patient saw her PCP and was started on Januvia for diabetes. Venous and arterial studies ordered: The patient does not wish to pursue vascular studies at this time. This will be readdressed if we experience stalling of wound healing. MRI with and without contrast of left foot ordered to evaluate for the presence of osteomyelitis; patient declined imaging at this time. We will reconsider if wound complications arise or healing fails. Follow-up: Patient did not follow-up with podiatry. Given patient's significant improvement in the past week, surgery consult may not be necessary. Return to clinic in 1 week for reevaluation. Return sooner or report to the emergency room should symptoms worsen, or new symptoms arise. Note: [employer] speech recognition spot man software was used to create portions of this document. Sound-alike and misspelled words, as well as other spot man errors may be contained in the documentation.
[2021-03-07 10:56] VITALS: BP 133/72; PULSE 77; TEMP 36.1
--- NOTE | 2021-03-07 10:57 | PCM.WC.PN ---
History of Present Illness Date of Service: 03/07/21 Chief Complaint: Left foot injury 01/09/2021 History of Wound: The patient is a pleasant 50-year-old female who presents to the wound healing center today (02/07/2021) for an initial evaluation of a left foot wound that resulted from an injury which occurred on 01/09/2021. She has a past medical history significant for type 2 diabetes mellitus, hypertension, and COPD. She is a non-smoker. The patient was initially evaluated at [facility], and subsequently with Dr. Roc Chambers (D.P.M.) at [facility]. No records are currently available. She reports that on 01/09/2021, she suffered a traumatic injury to her left dorsal foot when seated on the fender of the tractor and her foot was forcefully crushed by part of the tractor. Initially her left foot became bruised and very swollen. She was evaluated in the emergency department at [facility] and an x-ray was negative for fracture or dislocation. She was started on an antibiotic at that time. She followed up with Dr. Roc Chambers at [facility] and another x-ray was subsequently performed, and she was given doxycycline. She reports she had developed blisters at the time of her podiatric evaluation, which were drained by Dr. Chambers. She has been using Neosporin and gauze dressings to her left foot wound. She was given a walking boot by Dr. Chambers, which she has been using on her left foot. She has not had any wound cultures. She was referred here by Dr. Chambers. Since the time of her injury, she has had numbness in her left fourth and fifth toes. She is unable to move these toes. She has pain along the lateral aspect of the wound. She denies fever, chills, nausea, vomiting, or diarrhea. The patient has not had increased redness, swelling, or purulent/malodorous drainage from affected area. Progress of Wound: Patient has been compliant with the use of Santyl. Her wound has again improved in size and appearance in the past week. She has regained feeling and movement in all the toes of her left foot. Her left foot swelling and pain have significantly improved. She DC'd walking boot from Ortho. She has been wearing regular, nonrestrictive shoes without pain or swelling. She has returned to work without restrictions at this time. She is able to elevate leg frequently at work. She is tolerating work well. The patient denies fever, chills, general malaise, or poor appetite. The patient has not had increased redness, swelling, or purulent/malodorous drainage from affected area. Objective Data Objective Data Vital Signs: Vital Signs Temp Pulse Resp BP 98.1 F 58 L 20 H 151/72 H 02/28/21 09:31 02/28/21 09:31 02/28/21 09:31 02/28/21 09:31 Charges/Coding Procedures Integumentary [id number]: [id number] Tonja subq tissue 20 sq cm/< Physical Exam Const alert, no apparent distress and healthy appearing General Appearance: cooperative, comfortable and well kempt HEENT Head and Scalp: normocephalic and atraumatic Neck supple Resp normal respiratory effort Extremity normal capillary refill Extremity Narrative: Varicosities of bilateral lower extremities noted General Extremity: edema left lower extremity (Foot) mild; Negative for clubbing or cyanosis Peripheral Pulses: Yes dorsalis pedis pulses present left 2+ Left Lower Extremity: foot and digits Positive for ROM (Able to move all toes of left foot) Skin Rashes: no rashes Wounds: wounds noted No malodorous Wound Narrative: Wound of left dorsal foot with subcutaneous layer exposed. Muscle and tendon no longer visible. Small to moderate amount of slough and devitalized tissue present. No undermining. No probing to bone. No tunneling. There is no purulent/malodorous drainage from the wound. There is mild periwound edema. Lateral left foot tenderness is significantly improved. Neuro oriented x3 Psych mental status grossly normal, cooperative and affect normal Debridement Note Debridement Note Post-Debridement Measurements and Additional Note: Post-Debridement Measurements/Treatment - Nurse 1 - General Ulcer Assessment Start: 02/28/21 09:31 Freq: Status: Active Protocol: JOSSELYN Activity Type Activity Date Activity User E-Sign Co-Sign Detail Recorded Client Recorded Date Recorded By Document 02/28/21 09:31 DL [id number] 02/28/21 09:36 DL 02/28/21 09:31 CHUCKIE - Today's Visit Information Type of service Follow-up Visit (Physician/PACKAGER ) Arrival Mode Ambulatory Transfer Assistance None Patient Identification Verified (Name & Yes ) Patient Requires Transmission-Based No Precautions Finger Stick Blood Sugar(mg/dl) (if not checked indicated): Blood Sugar Stated by Patient Vital Signs Temperature (97.8 F-99.1 F) 98.1 F Temperature Source Temporal Pulse Rate (60-100) 58 L Pulse Location Monitor Respiratory Rate (12-18) 20 H Respiratory rate source Observation Blood Pressure (90/60-120/80) 151/72 H Blood Pressure Mean (mm Hg) 98 Source Monitor History Since Last Visit- (Skip if this is Patient's initial visit) Have you changed medications since your No last visit? Any new allergies or adverse reactions No Signs or symptoms of abuse and/or No neglect since last visit Have you been in the hospital since your No last visit? Has dressing in place as prescribed Yes Has compression in place as prescribed N/A Has offloadiing in place as prescribed No Experienced any changes in pain level or Yes management Left Footwear Regular Shoe Right Footwear Regular Shoe Pain Scale: 0-10 Numeric Is Patient Pain Free? Yes WC - Nurse 1 - General Ulcer Measurement Start: 02/28/21 09:31 Freq: Status: Active Protocol: Activity Type Activity Date Activity User E-Sign Co-Sign Detail Recorded Client Recorded Date Recorded By Document 02/28/21 09:31 DL [id number] 02/28/21 09:36 DL 02/28/21 09:31 Wound Center Nurse 1 #1 left foot -Current Size (cm) - Length 2 -Current Size (cm) - Width 1.2 -Current Size (cm) - Depth 0.3 -Total Square Cm 2.4 -Photo Taken No -Exudate Amt Medium -Exudate Type Serosanguineous -Wound Margin Distinct, Outline Attached -Granulation Amt Medium (34-66%) -Granulation Quality Red -Necrosis Amt Medium (34-66%) -Necrotic Tissue Type Adherent Slough -Structure Exposed N/A -Texture (Oly-wound Skin Appearance) Localized Edema ,Scarring -Moisture (Oly-wound Skin Appearance) No Abnormality -Color (Oly-wound Skin Appearance) Rubor -Temperature (Oly-wound Skin No Abnormality Appearance) (Pt Warm) -Tenderness on Palpation (Oly-wound No Skin Appearance) -Ulcer Cleansing Rinsed/ Irrigated with Saline -Foul Odor after Cleansing No -Anesthetic Used 5% Lidocaine Gel Left Calf (cm) 39.4 Left Ankle (cm) 21 WC - Nurse 2 - General Ulcer CM Notes Start: 02/28/21 09:31 Freq: Status: Active Protocol: Activity Type Activity Date Activity User E-Sign Co-Sign Detail Recorded Client Recorded Date Recorded By Document 02/28/21 13:48 PL [id number] 02/28/21 13:51 PL 02/28/21 13:48 Wound Center Nurse 2 #1 left foot -Time 10:01 -Correct Patient Yes -Correct Side, Site, Position Yes -Correct Procedure Yes -Procedure Performed Yes -Type of Procedure Debridement -Clinical Debridement Muscle / Fascia -Tissue Removed Epidermis, Dermis, Subcutaneous, Muscle -Post Debridement (cm) - Length 2.0 -Post Debridement (cm) - Width 1.9 -Post Debridement (cm) - Depth 0.7 -Total Square (Post) (cm) 3.80 -Area of Debridement (cm) - Length 2.0 -Area of Debridement (cm) - Width 1.9 -Total Square (Area) (cm) 3.80 -Tunneling No -Undermining/Tunneling No -Circular Undermining No -Wound/Ulcer Outcome Not Healed -Ulcer Cleansing Rinsed/ Irrigated with Saline -Foul Odor after Cleansing No -Bioengineered Tissue No -Debridement - Muscle / Fascia, 1st Yes 20sq cm Pain Scale: 0-10 Numeric Is Patient Pain Free? Yes - Nurse 3 - General Ulcer D/C NN Start: 02/28/21 09:31 Freq: Status: Active Protocol: Activity Type Activity Date Activity User E-Sign Co-Sign Detail Recorded Client Recorded Date Recorded By Document 02/28/21 13:48 PL [id number] 02/28/21 13:51 PL 02/28/21 13:48 Is Patient Pain Free? Yes Wound Care Nurse 3 #1 left foot -Ulcer Cleansing Rinsed/ Irrigated with Saline -Foul Odor after Cleansing No -Other Dressing Hydrogel -Primary Dressing Covered/Secured with Dry Gauze & Roll Gauze, Secured with Tape Left -Tubular Bandage Double Layer -Size of Tubigrip Used Size E -Size E ($) 2 WC - Visit Discharge Discharge Condition Stable Ambulatory Status Ambulatory Transportation Private Auto Clinical Summary of Care Provided Yes Wound debrided: L dorsal foot Laterality: Left Wound Grade/Stage: Balbuena 2 Type of Debridement: Excisional debridement Anesthesia Used: 5% Lidocaine Gel and Cetacaine Depth: in the subcutaneous layer Percentage of wound debrided: 100 Instrument Used: 5mm curette Tissue Removed: slough and devitalized tissue Severity: Fat Layer Exposed Amount of bleeding with debridement: Mild Bleeding Controlled with: Pressure Patient tolerated procedure: Patient tolerated procedure well Assessment/Plan Assessment/Plan (1) Diabetic ulcer of left foot associated with diabetes mellitus due to underlying condition, with muscle involvement without evidence of necrosis: CODE(S): E08.621 - Diabetes mellitus due to underlying condition with foot ulcer; L97.525 - Non-pressure chronic ulcer of other part of left foot with muscle involvement without evidence of necrosis (2) Crushing injury of left foot, sequela: CODE(S): S97.82XS - Crushing injury of left foot, sequela (3) Type 2 diabetes mellitus: CODE(S): E11.9 - Type 2 diabetes mellitus without complications QUALIFIERS: Diabetes mellitus terminal manager insulin use: without nursing home use Diabetes mellitus complication status: with skin complications Diabetes mellitus complication detail: with foot ulcer Qualified Code(s): E11.621 - Type 2 diabetes mellitus with foot ulcer; L97.509 - Non-pressure chronic ulcer of other part of unspecified foot with unspecified severity (4) Varicose veins of bilateral lower extremities with other complications: CODE(S): I83.893 - Varicose veins of bilateral lower extremities with other complications (5) Essential hypertension: CODE(S): I10 - Essential (primary) hypertension (6) COPD (chronic obstructive pulmonary disease): CODE(S): J44.9 - Chronic obstructive pulmonary disease, unspecified QUALIFIERS: COPD type: unspecified COPD Qualified Code(s): J44.9 - Chronic obstructive pulmonary disease, unspecified PLAN: Debridement performed today in clinic as annotated above. Aquacel Ag applied today. At home wound-care instructions: Perform Santyl dressing changes daily, and cover with gauze. If Santyl runs out, begin daily Aquacel Ag dressing changes. Change dressing once daily or more frequently as needed due to contamination. Wash wounds daily with antibacterial soap and water, rinse and dry thoroughly before each dressing change. Compression: Double Tubigrip's applied to the left lower extremity. Wear these daily. Off-loading: The patient was instructed to avoid pressure and friction on the affected areas. Avoid prolonged standing and/or dangling of legs. When seated, feet should be elevated at chest level. May continue to wear normal, nonrestrictive shoes unless wound worsening is noted. Diet: Patient encouraged to increase protein intake while taking caution to avoid high carbohydrate and/or sugar intake. The patient saw her PCP and was started on Januvia for diabetes. She reports her morning blood sugars are running 140s. Discussed importance of optimal glucose control. The patient is a non-smoker. Labs/cultures/imaging: Cultures were negative. The patient has completed a course of doxycycline. Routine baseline lab work (CBCD, CMP, ESR, CRP, prealbumin, A1c), significant for the following: CBCD: Unremarkable CMP: Glucose 167 (H) Hemoglobin A1c: 8.3% (H) CRP: 4.85 (H) ESR: Normal Prealbumin: Normal Venous and arterial studies ordered: The patient does not wish to pursue vascular studies at this time. This will be readdressed if we experience stalling of wound healing. MRI with and without contrast of left foot ordered to evaluate for the presence of osteomyelitis; patient declined imaging at this time. We will reconsider if wound complications arise or healing fails. Follow-up: Patient did not follow-up with podiatry. Given patient's significant improvement, surgery consult may not be necessary; will continue to assess. Return to clinic in 1 week for reevaluation. Return sooner or report to the emergency room should symptoms worsen, or new symptoms arise. Note: [employer]akia speech recognition fishing line winding machine operator software was used to create portions of this document. Sound-alike and misspelled words, as well as other fishing line winding machine operator errors may be contained in the documentation.
[2021-03-14 10:56] VITALS: BP 145/70; PULSE 70; RESP 18; TEMP 36.3
--- NOTE | 2021-03-14 13:33 | PN.PCM_ITS ---
History of Present Illness Date of Service: 03/14/21 Chief Complaint: Left foot injury 01/09/2021 History of Wound: The patient is a pleasant 50-year-old female who presents to the wound healing center today (02/07/2021) for an initial evaluation of a left foot wound that resulted from an injury which occurred on 01/09/2021. She has a past medical history significant for type 2 diabetes mellitus, hypertension, and COPD. She is a non-smoker. The patient was initially evaluated at [facility], and subsequently with Dr. Roc Chambers (D.P.M.) at [facility]. No records are currently available. She reports that on 01/09/2021, she suffered a traumatic injury to her left dorsal foot when seated on the fender of the tractor and her foot was forcefully crushed by part of the tractor. Initially her left foot became bruised and very swollen. She was evaluated in the emergency department at [facility] and an x-ray was negative for fracture or dislocation. She was started on an antibiotic at that time. She followed up with Dr. Roc Chambers at [place] or [facility] and another x-ray was subsequently performed, and she was given doxycycline. She reports she had developed blisters at the time of her podiatric evaluation, which were drained by Dr. Chambers. She has been using Neosporin and gauze dressings to her left foot wound. She was given a walking boot by Dr. Chambers, which she has been using on her left foot. She has not had any wound cultures. She was referred here by Dr. Chambers. Since the time of her injury, she has had numbness in her left fourth and fifth toes. She is unable to move these toes. She has pain along the lateral aspect of the wound. She denies fever, chills, nausea, vomiting, or diarrhea. The patient has not had increased redness, swelling, or purulent/malodorous drainage from affected area. Progress of Wound: Patient has been compliant with the use of Aquacel Ag. Her wound has again improved in size and appearance in the past week. She has regained feeling and movement in all the toes of her left foot. Her left foot swelling and pain have significantly improved. She DC'd walking boot from Ortho. She has been wearing regular, nonrestrictive shoes without pain or swelling. She has returned to work without restrictions at this time. She is able to elevate leg frequently at work. She is tolerating work well. The patient denies fever, chills, general malaise, or poor appetite. The patient has not had increased redness, swelling, or purulent/malodorous drainage from affected area. She has developed a dermatitic rash and itching of the periulcer area since beginning Aquacel Ag. She has been using OTC hydrocortisone ointment to the area with minimal improvement. Objective Data Objective Data Vital Signs: Vital Signs Temp Pulse Resp BP 97.4 F L 70 18 145/70 H 03/14/21 10:56 03/14/21 10:56 03/14/21 10:56 03/14/21 10:56 Charges/Coding Procedures Integumentary [id number]: [id number] Tonja subq tissue 20 sq cm/< Physical Exam Const alert, no apparent distress and healthy appearing General Appearance: cooperative, comfortable and well kempt HEENT Head and Scalp: normocephalic and atraumatic Neck supple Resp normal respiratory effort Extremity normal capillary refill Extremity Narrative: Varicosities of bilateral lower extremities noted General Extremity: edema left lower extremity (Foot) trace; Negative for clubbing or cyanosis Peripheral Pulses: Yes dorsalis pedis pulses present left 2+ Left Lower Extremity: foot and digits Positive for ROM (Able to move all toes of left foot) Skin Rashes: rashes noted Left dorsal foot Narrative: Well-defined, erythematous, raised, dermatitic rash of the left dorsal foot at the site of patient's previous dressings. The site is pruritic per patient. Wounds: wounds noted No malodorous Wound Narrative: Wound of left dorsal foot with subcutaneous layer exposed. Muscle and tendon no longer visible. Small to moderate amount of slough and devitalized tissue present. No undermining. No probing to bone. No tunneling. There is no purulent/malodorous drainage from the wound. There is mild periwound edema. Lateral left foot tenderness is significantly improved. Neuro oriented x3 Psych mental status grossly normal, cooperative and affect normal Debridement Note Debridement Note Post-Debridement Measurements and Additional Note: Post-Debridement Measurements/Treatment CHUCKIE - Nurse 1 - General Ulcer Assessment Start: 02/28/21 09:31 Freq: Status: Active Protocol: JOSSELYN Activity Type Activity Date Activity User E-Sign Co-Sign Detail Recorded Client Recorded Date Recorded By Document 02/28/21 09:31 DL [id number] 02/28/21 09:36 DL Document 03/07/21 10:56 AK [id number] 03/07/21 11:07 AK Document 03/14/21 10:56 DL [id number] 03/14/21 11:02 DL 02/28/21 03/07/21 03/14/21 09:31 10:56 10:56 - Today's Visit Information Type of service Follow-up Visit Follow-up Visit Follow-up Visit (Physician/AQUATICS COORDINATOR (Physician/AQUATICS COORDINATOR (Physician/AQUATICS COORDINATOR ) ) ) Arrival Mode Ambulatory Ambulatory Ambulatory Transfer Assistance None None Patient Identification Verified (Name & Yes Yes Yes ) Patient Requires Transmission-Based No No Precautions Finger Stick Blood Sugar(mg/dl) (if not checked 147 134 indicated): Blood Sugar Stated by Stated by Stated by Patient Patient Patient Vital Signs Temperature (97.8 F-99.1 F) 98.1 F 96.9 F L 97.4 F L Temperature Source Temporal Temporal Temporal Pulse Rate (60-100) 58 L 77 70 Pulse Location Monitor Monitor Respiratory Rate (12-18) 20 H 18 Respiratory rate source Observation Observation Blood Pressure (90/60-120/80) 151/72 H 133/72 H 145/70 H Blood Pressure Mean (mm Hg) 98 92 95 Source Monitor Monitor Monitor History Since Last Visit- (Skip if this is Patient's initial visit) Have you changed medications since your No No No last visit? Any new allergies or adverse reactions No No No Had a fall/change in ADL's that may No increase risk of falls Signs or symptoms of abuse and/or No No No neglect since last visit Have you been in the hospital since your No No No last visit? Has dressing in place as prescribed Yes Yes Yes Has compression in place as prescribed N/A Yes Yes Has offloadiing in place as prescribed No N/A N/A Experienced any changes in pain level or Yes No management Left Footwear Regular Shoe Regular Shoe Right Footwear Regular Shoe Regular Shoe Pain Scale: 0-10 Numeric Is Patient Pain Free? Yes Yes - Nurse 1 - General Ulcer Measurement Start: 02/28/21 09:31 Freq: Status: Active Protocol: Activity Type Activity Date Activity User E-Sign Co-Sign Detail Recorded Client Recorded Date Recorded By Document 02/28/21 09:31 DL [id number] 02/28/21 09:36 DL Document 03/07/21 10:56 AK [id number] 03/07/21 11:07 AK Document 03/14/21 10:56 DL [id number] 03/14/21 11:02 DL 02/28/21 03/07/21 03/14/21 09:31 10:56 10:56 Wound Center Nurse 1 #1 left foot -Combined with other wound No -Current Size (cm) - Length 2 1.6 1 -Current Size (cm) - Width 1.2 1.1 0.6 -Current Size (cm) - Depth 0.3 0.3 0.3 -Total Square Cm 2.4 1.76 0.6 -Photo Taken No No No -Undermining/Tunneling No -Exudate Amt Medium Small -Exudate Type Serosanguineous Serosanguineous Serosanguineous -Wound Margin Distinct, Distinct, Distinct, Outline Outline Outline Attached Attached Attached -Granulation Amt Medium (34-66%) Medium (34-66%) None Present (0 %) -Granulation Quality Red Red -Necrosis Amt Medium (34-66%) Medium (34-66%) Large (67-100%) -Necrotic Tissue Type Adherent Slough Adherent Slough Adherent Slough -Structure Exposed N/A N/A -Texture (Oly-wound Skin Appearance) Localized Edema No Abnormality, Scarring ,Scarring Assessed -Moisture (Oly-wound Skin Appearance) No Abnormality No Abnormality Dry/Scaly -Color (Oly-wound Skin Appearance) Rubor No Abnormality, No Abnormality Assessed -Temperature (Oly-wound Skin No Abnormality No Abnormality No Abnormality Appearance) (Pt Warm) (Pt Warm) (Pt Warm) -Tenderness on Palpation (Oly-wound No No No Skin Appearance) -Ulcer Cleansing Rinsed/ Rinsed/ Wound Cleanser Irrigated with Irrigated with Saline Saline -Foul Odor after Cleansing No No -Anesthetic Used 5% Lidocaine 5% Lidocaine 4% Lidocaine Gel Gel Solution Left Calf (cm) 39.4 40 39.3 Left Ankle (cm) 21 23 21.5 WC - Nurse 2 - General Ulcer CM Notes Start: 02/28/21 09:31 Freq: Status: Active Protocol: Activity Type Activity Date Activity User E-Sign Co-Sign Detail Recorded Client Recorded Date Recorded By Document 02/28/21 13:48 PL [id number] 02/28/21 13:51 PL Document 03/07/21 12:10 PL [id number] 03/07/21 12:11 PL Document 03/14/21 13:32 PL [id number] 03/14/21 13:33 PL 02/28/21 03/07/21 03/14/21 13:48 12:10 13:32 Wound Center Nurse 2 #1 left foot -Time 10:01 11:10 11:28 -Correct Patient Yes Yes Yes -Correct Side, Site, Position Yes Yes Yes -Correct Procedure Yes Yes Yes -Procedure Performed Yes Yes Yes -Type of Procedure Debridement Debridement Debridement -Clinical Debridement Muscle / Fascia Subcutaneous Subcutaneous -Tissue Removed Epidermis, Subcutaneous Subcutaneous Dermis, Subcutaneous, Muscle -Post Debridement (cm) - Length 2.0 1.7 1.7 -Post Debridement (cm) - Width 1.9 1.1 0.9 -Post Debridement (cm) - Depth 0.7 0.4 0.3 -Total Square (Post) (cm) 3.80 1.87 1.53 -Area of Debridement (cm) - Length 2.0 1.7 1.7 -Area of Debridement (cm) - Width 1.9 1.1 0.9 -Total Square (Area) (cm) 3.80 1.87 1.53 -Tunneling No No No -Undermining/Tunneling No No No -Circular Undermining No No No -Wound/Ulcer Outcome Not Healed Not Healed Not Healed -Ulcer Cleansing Rinsed/ Rinsed/ Rinsed/ Irrigated with Irrigated with Irrigated with Saline Saline Saline -Foul Odor after Cleansing No No No -Bioengineered Tissue No No No -Debridement - Subq, 1st 20sq cm Yes Yes -Debridement - Muscle / Fascia, 1st Yes 20sq cm Pain Scale: 0-10 Numeric Is Patient Pain Free? Yes WC - Nurse 3 - General Ulcer D/C NN Start: 02/28/21 09:31 Freq: Status: Active Protocol: Activity Type Activity Date Activity User E-Sign Co-Sign Detail Recorded Client Recorded Date Recorded By Document 02/28/21 13:48 PL [id number] 02/28/21 13:51 PL Document 03/07/21 12:10 PL [id number] 03/07/21 12:11 PL Document 03/14/21 11:43 AK [id number] 03/14/21 11:45 AK 02/28/21 03/07/21 03/14/21 13:48 12:10 11:43 Pain Scale: 0-10 Numeric Is Patient Pain Free? Yes Wound Care Nurse 3 #1 left foot -Ulcer Cleansing Rinsed/ Rinsed/ Rinsed/ Irrigated with Irrigated with Irrigated with Saline Saline Saline -Foul Odor after Cleansing No No No -Negative Pressure Wound Therapy N/A -Primary Dressing Applied Aquacel AG 2x2, Promogran Aquacel AG 4x4 Renetta Matter -Other Dressing Hydrogel -Primary Dressing Covered/Secured with Dry Gauze & Dry Gauze, Secured with Roll Gauze, Secured with Tape Secured with Tape Tape -Aquacel AG 4x4 1 -Aquacel AG 2x2 1 -Promogran Renetta Matter 1 Left -Tubular Bandage Double Layer Double Layer -Size of Tubigrip Used Size E Size D -Size D ($) 2 -Size E ($) 2 WC - Visit Discharge Discharge Condition Stable Stable Stable Ambulatory Status Ambulatory Ambulatory Ambulatory Transportation Private Auto Private Auto Clinical Summary of Care Provided Yes Yes Wound debrided: Left dorsal foot Laterality: Left Wound Grade/Stage: Balbuena 2 Type of Debridement: Excisional debridement Anesthesia Used: 5% Lidocaine Gel Depth: in the subcutaneous layer Percentage of wound debrided: 100 Instrument Used: 3mm curette and - (1 mm curette) Tissue Removed: Slough and devitalized tissue Severity: Fat Layer Exposed Amount of bleeding with debridement: Mild Bleeding Controlled with: Pressure Patient tolerated procedure: Patient tolerated procedure well Assessment/Plan Assessment/Plan (1) Diabetic ulcer of left foot associated with diabetes mellitus due to underlying condition, with muscle involvement without evidence of necrosis: CODE(S): E08.621 - Diabetes mellitus due to underlying condition with foot ulcer; L97.525 - Non-pressure chronic ulcer of other part of left foot with muscle involvement without evidence of necrosis (2) Crushing injury of left foot, sequela: CODE(S): S97.82XS - Crushing injury of left foot, sequela (3) Type 2 diabetes mellitus: CODE(S): E11.9 - Type 2 diabetes mellitus without complications QUALIFIERS: 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 insulin use: without laborer marine terminal use Diabetes mellitus complication status: with skin complications Diabetes mellitus complication detail: with foot ulcer Qualified Code(s): E11.621 - Type 2 diabetes mellitus with foot ulcer; L97.509 - Non-pressure chronic ulcer of other part of unspecified foot with unspecified severity (4) Varicose veins of bilateral lower extremities with other complications: CODE(S): I83.893 - Varicose veins of bilateral lower extremities with other complications (5) Essential hypertension: CODE(S): I10 - Essential (primary) hypertension (6) COPD (chronic obstructive pulmonary disease): CODE(S): J44.9 - Chronic obstructive pulmonary disease, unspecified QUALIFIERS: COPD type: unspecified COPD Qualified Code(s): J44.9 - Chronic obstructive pulmonary disease, unspecified PLAN: Debridement performed today in clinic as annotated above. Promogran applied today. Given the duration of the wound and failure of the wound to heal using standard wound care, we have applied for advanced skin substitutes (Puraply, Nushield, EpiFix). Per cyanide case hardener, Chris Novoa RN, patient is approved for Apligraf. Epifix approval is still pending. For her rash, triamcinolone 0.1% ointment twice daily prescribed. Patient advised to avoid getting ointment in her wound. At home wound-care instructions: Perform Promogran dressing changes daily, and cover with gauze. Change dressing once daily or more frequently as needed due to contamination. Wash wounds daily with antibacterial soap and water, rinse and dry thoroughly before each dressing change. Compression: Double Tubigrip's applied to the left lower extremity. Wear these daily. Off-loading: The patient was instructed to avoid pressure and friction on the affected areas. Avoid prolonged standing and/or dangling of legs. When seated, feet should be elevated at chest level. May continue to wear normal, nonrestrictive shoes unless wound worsening is noted. Diet: Patient encouraged to increase protein intake while taking caution to avoid high carbohydrate and/or sugar intake. The patient saw her PCP and was started on Januvia for diabetes. She reports her morning blood sugars are running 140s. Discussed importance of optimal glucose control. The patient is a non-smoker. Labs/cultures/imaging: Cultures were negative. The patient has completed a course of doxycycline. Routine baseline lab work (CBCD, CMP, ESR, CRP, prealbumin, A1c), significant for the following: CBCD: Unremarkable CMP: Glucose 167 (H) Hemoglobin A1c: 8.3% (H) CRP: 4.85 (H) ESR: Normal Prealbumin: Normal Venous and arterial studies ordered: The patient does not wish to pursue vascular studies at this time. This will be readdressed if we experience stalling of wound healing. MRI with and without contrast of left foot ordered to evaluate for the presence of osteomyelitis; patient declined imaging at this time. We will reconsider if wound complications arise or healing fails. Follow-up: Patient did not follow-up with podiatry. Given patient's significant improvement, surgery consult may not be necessary; will continue to assess. Return to clinic in 1 week for reevaluation. Return sooner or report to the emergency room should symptoms worsen, or new symptoms arise. Note: [employer] speech recognition sole molder software was used to create portions of this document. Sound-alike and misspelled words, as well as other sole molder errors may be contained in the documentation.
== END 2021-03-25 23:59 ==
LOC: WC 11:00
PROVIDERS: PCP Internal Medicine; Referring Provider Nurse Practitioner Family; Visit Provider Nurse Practitioner Family
DX: E11.621 Type 2 diabetes mellitus with foot ulcer (principal); L97.525 Non-pressure chronic ulcer of other part of left foot with muscle involvement without evidence of necrosis; S97.82XS Crushing injury of left foot, sequela; I83.893 Varicose veins of bilateral lower extremities with other complications; I10 Essential (primary) hypertension; J44.9 Chronic obstructive pulmonary disease, unspecified
CPT/HCPCS: 11042; 11043